=== PATIENT | female | born 1980 | race Caucasian/White ===

== ENCOUNTER 2016-06-27 22:10 | Emergency (ER) | payer OTHER, BC, MEDICAID ==
[2016-06-27] MEDS ORDERED: Sodium Chloride 0.9% 1000 ML 1,000 ML IV STA (22:13)
--- NOTE | 2016-06-27 22:19 | ERPHSYRPT ---
- History of Present Illness Time Seen by Provider: 06/27/16 22:10 Source: EMS Exam Limitations: clinical condition Physician History: REPORTEDLY PT WAS FOUND BY A WIND FARM ENGINEER IN THE ASSOCIATE COUNSEL'S SEAT OF A CAR PARKED ALONG THE ROAD WHICH WENT OVER THE CURB, UNRESPONSIVE WITH NO PULSE. CPR WAS STARTED AND EMS SUMMONED ABOUT 20 MINUTES AGO. PT WAS INTUBATED, INITIALLY IN PEA, GIVEN 2 EPINEPHRINE, WENT INTO V-FIB, WAS DEFIBRILLATED AND THEN HAD SINUS TACHYCARDIA. UNKNOWN HOW LONG PT WAS PULSELESS PRIOR TO W[employer] FARM ENGINEER ARRIVAL. Allergies/Adverse Reactions: No Known Drug Allergies Allergy (Verified 12/07/15 11:44) Home Medications: Labetalol HCl 100 mg [Trandate 100 MG] 600 mg PO TID 11/22/15 [History] Vits W-Ca,Fe,FA(<1Mg) [] 1 tablet PO DAILY 11/22/15 [History] - Review of Systems All Other Systems: Unable due to condition (PT UNRESPONSIVE) - Physical Exam General Appearance: other (UNRESPONSIVE) Eye Exam: other (PUPILS FIXED AND DILATED AT 7MM.) Ears, Nose, Throat Exam: other (PT INTUBATED) Neck Exam: normal inspection Respiratory Exam: other (NO SPONTANEOUS RESPIRATIONS) Cardiovascular Exam: tachycardia Gastrointestinal/Abdomen Exam: soft Extremity Exam: other (MOTTLED EXTREMITIES) Neurologic Exam: other (UNRESPONSIVE; NO RESPONSE TO PLANTAR STIMULATION.) Skin Exam: other (MOTTLED) - Course Nursing assessment & vital signs reviewed: Yes EKG Interpreted by Me: RATE (84), Sinus Rhythm, NORMAL AXIS, Other (ST DEPRESSIONS IN II, III, aVF, V4 - V6.) - Radiology Exams Chest X-ray Interpretation: Interpreted by me (CM) Ordered Tests: Active Orders 24 hr Category Date Time Status Data Manager STAT Care 06/27/16 22:13 Active Catheter-[place] STAT Care 06/27/16 22:13 Active EKG-ER Only STAT Care 06/27/16 22:17 Active IV Insertion STAT Care 06/27/16 22:13 Active Oxygen-ED Only NON-REBREATHER 100% Care 06/27/16 22:13 Active Pulse Oximetry (ED) STAT Care 06/27/16 22:13 Active CERVICAL SPINE WO CONTRAST [CT] Stat Exams 06/27/16 22:48 Ordered CHEST 1 VIEW (PORTABLE) Stat Exams 06/27/16 22:16 Taken HEAD WITHOUT CONTRAST [CT] Stat Exams 06/27/16 22:48 Ordered AMYLASE Stat Lab 06/27/16 22:00 Completed ARTERIAL BLOOD GASES Urgent Lab 06/27/16 22:13 Ordered BLOOD CULTURE Stat Lab 06/27/16 22:15 Received CBC W DIFF Stat Lab 06/27/16 22:13 Completed CMP Stat Lab 06/27/16 22:00 Completed CULTURE,URINE Stat Lab 06/27/16 22:15 Uncollected D-DIMER QUANTITATION Stat Lab 06/27/16 22:00 Received Ethyl Alcohol,Urine Stat Lab 06/27/16 22:13 Uncollected HCG QUALITATIVE,SERUM Stat Lab 06/27/16 22:00 Completed LIPASE Stat Lab 06/27/16 22:00 Completed Lactic Acid Stat Lab 06/27/16 22:35 Completed Lactic Acid Urgent Lab 06/27/16 22:13 Ordered MAGNESIUM Stat Lab 06/27/16 22:00 Completed Manual Differential NC Stat Lab 06/27/16 22:13 Completed PROTIME WITH INR Stat Lab 06/27/16 22:00 Received PTT Stat Lab 06/27/16 22:00 Received TROPONIN Q3H Lab 06/27/16 22:00 Received TROPONIN Q3H Lab 06/28/16 01:15 Ordered TROPONIN Q3H Lab 06/28/16 04:15 Ordered TROPONIN Q3H Lab 06/28/16 07:15 Ordered TROPONIN Q3H Lab 06/28/16 10:15 Ordered UA W/ MICROSCOPIC Stat Lab 06/27/16 22:34 Completed Urine Triage Profile Stat Lab 06/27/16 22:34 Completed Medication Summary Generic Name Dose Route Start Last Admin Trade Name Richyq PRN Reason Stop Dose Admin Sodium Chloride 1,000 mls @ 999 mls/hr 06/27/16 22:13 06/27/16 22:39 Sodium Chloride 0.9% 1000 Ml IV 06/27/16 23:13 999 mls/hr .Q1H1M STA Administration Dopamine HCl/Dextrose 250 mls @ 06/27/16 22:45 Dopamine 400 Mg/D5w 250ml Premix IV 07/27/16 22:44 .Q0M TOMMY Protocol 10 MCG/KG/MIN Ceftriaxone Sodium/Dextrose 50 mls @ 100 mls/hr 06/27/16 22:45 Rocephin 1 Gm-D5w 50 Ml Bag IV 06/27/16 23:14 STAT ONE Potassium Chloride 100 mls @ 50 mls/hr 06/27/16 22:57 Potassium Chloride 20 Meq In Water 100ml IV 06/28/16 00:56 STAT ONE Discontinued Medications Generic Name Dose Route Start Last Admin Trade Name Kirk PRN Reason Stop Dose Admin Sodium Chloride Confirm 06/27/16 22:21 Sodium Chloride 0.9% 1000 Ml Administered 06/27/16 22:22 Dose 1,000 mls @ ud .ROUTE .STK-MED ONE Sodium Chloride Confirm 06/27/16 22:30 Sodium Chloride 0.9% 1000 Ml Administered 06/27/16 22:31 Dose 2,000 mls @ ud .ROUTE .STK-MED ONE Lab/Rad Data: Laboratory Result Diagrams 06/27/16 22:13 06/27/16 22:00 Laboratory Results 06/27/16 06/27/16 06/27/16 Range/Units 22:35 22:34 22:34 WBC (4.0-10.5) K/mm3 RBC (4.1-5.4) M/mm3 Hgb (12.0-16.0) gm/dl Hct (35-47) % MCV (78-100) fl MCH (26-32) pg MCHC (32-36) g/dl RDW (11.5-14.0) % Plt Count (150-450) K/mm3 MPV (6-9.5) fl Sodium (136-145) mEq/L Potassium (3.5-5.1) mEq/L Chloride (98-107) mEq/L Carbon Dioxide (21-32) mEq/L Anion Gap (5-15) MEQ/L BUN (9-20) mg/dL Creatinine (0.55-1.30) mg/dl Estimated GFR ML/MIN Glucose (70-110) MG/DL Lactic Acid 5.7 H (0.4-2.0) Calcium (8.5-10.1) mg/dL Magnesium (1.8-2.4) mg/dL Total Bilirubin (0.2-1.0) mg/dL AST (15-37) U/L ALT (12-78) U/L Alkaline Phosphatase (46-116) U/L Serum Total Protein (6.4-8.2) gm/dL Albumin (3.4-5.0) g/dL Amylase (25-115) U/L Lipase (73-393) U/L Serum , Qual (Negative) Ur Collection Type CATH Urine Color YELLOW (YELLOW) Urine Appearance CLEAR (CLEAR) Urine pH 7.5 (5-6) Ur Specific [place] 1.020 (1.005-1.025) Urine Protein >=300 (Negative) Urine Glucose (UA) NEGATIVE (NEGATIVE) mg/dL Urine Ketones NEGATIVE (NEGATIVE) Urine Nitrite NEGATIVE (NEGATIVE) Urine Bilirubin NEGATIVE (NEGATIVE) Urine Urobilinogen 0.2 (0-1) mg/dL Urine WBC (Auto) NEGATIVE (NEGATIVE) Urine RBC (Auto) LARGE (0-5) Alan/ul Urine Microscopic RBC 50-100 (0-2) /HPF Ur Epithelial Cells FEW (FEW) /HPF Urine Bacteria RARE (NEGATIVE) /HPF Urine Opiates Level NEG. (NEGATIVE) Ur Methadone NEG. (NEGATIVE) Urine Barbiturates NEG. (NEGATIVE) Ur Phencyclidine (PCP) NEG. (NEGATIVE) Urine Amphetamine NEG. (NEGATIVE) U Benzodiazepine Level NEG. (NEGATIVE) Urine Cocaine NEG. (NEGATIVE) Urine Marijuana (THC) NEG. (NEGATIVE) Specimen Received [id number] 06/27/16 06/27/16 06/27/16 Range/Units 22:13 22:00 22:00 WBC 20.8 H (4.0-10.5) K/mm3 RBC 4.93 (4.1-5.4) M/mm3 Hgb 13.8 (12.0-16.0) gm/dl Hct 43.6 (35-47) % MCV 88.4 (78-100) fl MCH 28.0 (26-32) pg MCHC 31.7 L (32-36) g/dl RDW 14.4 H (11.5-14.0) % Plt Count 285 (150-450) K/mm3 MPV 10.6 H (6-9.5) fl Sodium 140 (136-145) mEq/L Potassium 2.5 L* (3.5-5.1) mEq/L Chloride 101 (98-107) mEq/L Carbon Dioxide 24.2 (21-32) mEq/L Anion Gap 18.4 H (5-15) MEQ/L BUN 17 (9-20) mg/dL Creatinine 1.46 H (0.55-1.30) mg/dl Estimated GFR 43 ML/MIN Glucose 318 H (70-110) MG/DL Lactic Acid (0.4-2.0) Calcium 8.2 L (8.5-10.1) mg/dL Magnesium 2.4 (1.8-2.4) mg/dL Total Bilirubin 0.3 (0.2-1.0) mg/dL AST 86 H (15-37) U/L ALT 90 H (12-78) U/L Alkaline Phosphatase 124 H (46-116) U/L Serum Total Protein 6.8 (6.4-8.2) gm/dL Albumin 3.2 L (3.4-5.0) g/dL Amylase 88 (25-115) U/L Lipase 320 (73-393) U/L Serum , Qual NEGATIVE (Negative) Ur Collection Type Urine Color (YELLOW) Urine Appearance (CLEAR) Urine pH (5-6) Ur Specific [place] (1.005-1.025) Urine Protein (Negative) Urine Glucose (UA) (NEGATIVE) mg/dL Urine Ketones (NEGATIVE) Urine Nitrite (NEGATIVE) Urine Bilirubin (NEGATIVE) Urine Urobilinogen (0-1) mg/dL Urine WBC (Auto) (NEGATIVE) Urine RBC (Auto) (0-5) Alan/ul Urine Microscopic RBC (0-2) /HPF Ur Epithelial Cells (FEW) /HPF Urine Bacteria (NEGATIVE) /HPF Urine Opiates Level (NEGATIVE) Ur Methadone (NEGATIVE) Urine Barbiturates (NEGATIVE) Ur Phencyclidine (PCP) (NEGATIVE) Urine Amphetamine (NEGATIVE) U Benzodiazepine Level (NEGATIVE) Urine Cocaine (NEGATIVE) Urine Marijuana (THC) (NEGATIVE) Specimen Received - Progress Discussed with : Other (SPOKE WITH FLAKO GUZMAN(N.P. FOR DR TRIMBLE)([id number]) WHO ACCEPTED PT FOR TRANSFER TO [facility] VIA AMBULANCE A DIRECT ADMISSION TO ICU.) - Departure Time of Disposition: 23:14 Departure Disposition: Transfer ([facility]) Clinical Impression: CARDIORESPIRATORY ARREST, HYPOKALEMIA, UNRESPONSIVENESS Condition: Critical Critical Care Time: Yes Critical Care Time(excluding separately billable procedures): 30-74 minutes Referrals: HAILEY HUTCHINSON [Primary Care Provider] -
[2016-06-27] MEDS ORDERED: Sodium Chloride 0.9% 1000 ML 1,000 ML ONE (22:21)
[2016-06-27] MEDS ORDERED: Sodium Chloride 0.9% 1000 ML 2,000 ML ONE (22:30)
[2016-06-27 22:31] LABS: Mean Cell Volume 88.4 fl (78-100); Mean Platelet Volume 10.6 fl (6-9.5); Platelet Count 285 K/mm3 (150-450); Red Blood Count 4.93 M/mm3 (4.1-5.4); Red Cell Distribution Width 14.4 % (11.5-14.0); White Blood Count 20.8 K/mm3 (4.0-10.5)
[2016-06-27 22:43] LABS: INR 0.96 (0.8-3.0); PROTIME 10.8 SECONDS (9.95-12.35)
[2016-06-27] MEDS ORDERED: ROCEPHIN 1 Gm-D5w 50 ml Bag** 50 ML IV ONE ×2 (22:45→23:37)
[2016-06-27] MEDS ORDERED: Dopamine 400 MG/D5W 250ML PREMIX 250 ML IV SCH (22:45)
[2016-06-27 22:46] LABS: PTT 36.8 SECONDS (25.3-37.0)
[2016-06-27 22:50] LABS: ALBUMIN 3.2 g/dL (3.4-5.0); ANION GAP 18.4 MEQ/L (5-15); BILIRUBIN,TOTAL 0.3 mg/dL (0.2-1.0); Carbon Dioxide 24.2 mEq/L (21-32); MAGNESIUM 2.4 mg/dL (1.8-2.4); Total Protein 6.8 gm/dL (6.4-8.2)
[2016-06-27 22:57] LABS: COMPLETE URINE MICROSCOPIC? YES; Collection Type CATH; Ph 7.5 (5-6)
[2016-06-27] MEDS ORDERED: POTASSIUM CHLORIDE 20 mEq IN WATER 100ML 100 ML IV ONE ×2 (22:57→23:37)
[2016-06-27 22:58] LABS: Bacteria RARE /HPF (NEGATIVE); Epithelial Cells FEW /HPF (FEW)
[2016-06-27 22:58] LABS: Potassium 2.5 mEq/L (3.5-5.1)
[2016-06-27 23:10] LABS: ATYPICAL LYMPHS 7 %; Eosinophil 1 % (0.00-3.0); Platelet Estimate NORMAL (NORMAL); Total Cells Counted 100
[2016-06-27 23:34] LABS: A-aADO2 414; ARTERIAL BLD GAS O2 SATURATION 100.3 % (95-100); ARTERIAL BLOOD GAS BASE EXCESS -2.8 (-2.0-2.0); ARTERIAL BLOOD GAS FIO2 100 %; ARTERIAL BLOOD GAS PO2 244 mmHg (75-100); ARTERIAL BLOOD GAS pH 7.33 (7.35-7.45); Lactic Acid 2.3 (0.4-2.0)
[2016-06-27 23:35] LABS: ALLEN TEST OK? YES; ARTERIAL BLD GAS TIDAL VOLUME 800 cc
[2016-06-27] MEDS ORDERED: FEVERALL 650 MG ONE (23:35)
[2016-06-27] MEDS ORDERED: cereBYX 50 MG/ML*** 1,000 MG in Sodium Chloride 0.9% 100 ML IVPB 100 ML IV ONE (23:49)
[2016-06-27] MEDS ORDERED: VERSED 5 MG/5 ML ONE (23:51)
[2016-06-27] MEDS ORDERED: cereBYX 50 MG/ML ONE (23:52)
[2016-06-27] MEDS ORDERED: Sodium Chloride 0.9% 100 ML IVPB 100 ML IV ONE (23:57)
[2016-06-28 00:14] VITALS: O2SAT 99
[2016-06-28 00:29] VITALS: BP 125/69
[2016-06-28 00:38] VITALS: PULSE 90
[2016-06-28] MEDS ORDERED: VERSED 5 MG/5 ML IV ONE (00:41)
[2016-06-28] MEDS ORDERED: VERSED 5 MG/5 ML ONE (00:42)
[2016-06-28] MEDS ORDERED: Sodium Chloride 0.9% 1000 ML 1,000 ML IV SCH (01:00)
--- NOTE | 2016-06-28 08:49 | XRAY ---
Indication: Acute respiratory failure. Unresponsive. Comparison: None Portable chest markedly underinflated accentuating the cardiopulmonary structures. No focal infiltrate, consolidation, pneumothorax, or large effusion. Endotracheal tube tip 1 cm above the dianne. Bony thorax intact. Impression: Nonacute underinflated chest with endotracheal tube tip 1 cm above the dianne.
--- NOTE | 2016-06-28 08:54 | XRAY ---
Indication: Found unresponsive. Acute respiratory failure. Multiple contiguous axial images obtained through the head without contrast. Comparison: None There is diffuse bilateral acute subarachnoid hemorrhage, largest focus parasellar. Additional acute intraventricular blood bilaterally. No hydrocephalus or midline shifting. Bony calvarium intact. Mild mucosal thickening of both ethmoid sinuses. Mastoid air cells are clear. Impression: Diffuse bilateral acute subarachnoid and intraventricular hemorrhage. Query [place] aneurysm rupture. Comment: Preliminary interpretation was made by [facility]. No discrepancy. CTDI 67.60
--- NOTE | 2016-06-28 08:59 | XRAY ---
Indication: Found unresponsive. Acute respiratory failure. Multiple contiguous axial images obtained through the cervical spine. Sagittal and coronal reformatted images obtained. Comparison: None Axial images negative for acute fracture, suspicious bony lesions, or spinal canal stenosis. Sagittal and coronal reformatted images demonstrates normal alignment. Minimal C7-T2 disc space narrowing. No acute compression fracture, subluxation, or jumped facets. Normal-appearing craniocervical junction. Visualized noncontrast soft tissues demonstrates chunky right thyroid calcification and partially visualized endotracheal tube. Right apical pleural effusion/atelectasis. CT head reported separately. Impression: 1. Negative acute fracture/subluxation. 2. Minimal C7-T2 disc space narrowing. 3. Incidental right apical pleural effusion/atelectasis and benign appearing chunky right thyroid calcification. Comment: Preliminary interpretation was made by [facility]. No critical discrepancy. CTDI 124.74
== END 2016-06-28 01:01 | disposition short-term general hospital (02) ==
LOC: ED 22:10
DX: I46.9 Cardiac arrest, cause unspecified (principal); E87.6 Hypokalemia
CPT/HCPCS: 36000; 36415; 36600; 51702; 70450; 71010; 72125; 80053; 80307; 80320; 81000; 82150; 82375; 82803; 83605; 83690; 83735; 83986; 84484; 84703; 85025; 85379; 85610; 85730; 87040; 87086; 93005; 93041; 94002; 94799; 96360; 96361; 96365; 96366; 96367; 96374; 96376; 99285; 99291; 99292; J0696; J1265; J2250; J3480; L0172; Q2009